=== PATIENT | female | born 1990 | race Asian ===

== ENCOUNTER 2018-02-23 14:54 | Outpatient (CLI) | payer OTHER ==
--- NOTE | 2018-02-23 16:23 | Ultrasound Report ---
Reason: PELVIC PAIN, IUD CONTRACEPTION Procedure Date: 02/23/2018 Accession Number: [id number] / [id number] Procedure: US - Pelvic w/Transvaginal CPT Code: FULL RESULT: EXAM: PELVIC ULTRASOUND EXAM DATE: 02/23/2018 04:11 PM. CLINICAL HISTORY: Pelvic pain. IUD in place. COMPARISON: None. TECHNIQUE: Realtime transabdominal pelvic scan performed to identify the uterus and adnexa and as an overview of other pelvic structures, followed by transvaginal scan to provide greater detail of the uterus and adnexa, with static image documentation. FINDINGS: Uterus: Anteverted 8.7 x 4.4 x 6 cm on transvaginal scan, volume 1 20 cc. IUD in the central canal of the body. Endometrial stripe 2.5 mm thick on TV scan without vascularity and color Doppler. No intracavitary fluid or polyp identified. No focal fibroid. Cervix: Unremarkable. Right Ovary: 3.6 x 2 x 1.9 cm, volume 7.1 cc. Unremarkable including color Doppler signal. Left Ovary: 2.2 x 1.2 x 1.3 cm, volume 1.8 cc. Unremarkable noting color Doppler signal. Free Fluid: None. Other: No adnexal mass evident. IMPRESSION: 1. Unremarkable uterus with IUD in expected position. 2. Bilateral ovaries within normal limits. 3. No free fluid or adnexal lesion identified. [facility]
== END 2018-02-23 14:55 | disposition home or self-care (01) ==
LOC: DI 14:54
PROVIDERS: ATTEND Nurse Practitioner
DX: R10.2 Pelvic and perineal pain (principal); Z97.5 Presence of (intrauterine) contraceptive device
CPT/HCPCS: 76830; 76856